=== PATIENT | male | born 1995 | race Caucasian/White ===

== ENCOUNTER 2016-08-04 12:54 | Emergency (ER) | payer OTHER ==
[~2016-08-04] VITALS: Ht 193 cm; Wt 113.4 kg
[2016-08-04 12:58] VITALS: BP 143/79
--- NOTE | 2016-08-04 13:33 | ED GENERAL ADULT ---
See Addendum History of Present Illness General Chief Complaint: General Adult Stated Complaint: STD TESTING Source: patient Exam Limitations: no limitations Vital Signs & Intake/Output Vital Signs & Intake/Output Vital Signs Date Time Temp Pulse Resp B/P Pulse O2 O2 Flow FiO2 Ox Delivery Rate 08/04 1258 96.8 92 20 143/79 97 Room Air Allergies Coded Allergies: No Known Allergies (08/04/16) Triage Note: RECEIVED 21 YO MALE REQUESTING TESTING FOR STD'S. PT REPORTS PREVIOUS SEXUAL PARTNER TESTED POSITIVE FOR A STD. Triage Nurses Notes Reviewed? yes Onset: Abrupt Duration: day(s):, constant Timing: recent history No Modifying Factors: none HPI: 21-year-old male comes into emergency room for gonorrhea/chlamydia exposure. He reports that his girlfriend tested positive for 102. Patient is not exhibiting any symptoms. Patient wants to be tested and treated. Denies any burning with urination or increased frequency. Denies any pain at all or any other symptoms. (ZORA AGUILAR) Reconcile Medications Cetirizine HCl (All Day Allergy) 1 MG/ML SOLUTION 1 TAB PO DAILY ALLERGY ( Reported) (BHAVNA PASCUAL DO) Past History Travel History Traveled to [place] past 21 day No Medical History Any Pertinent Medical History? see below for history Neurological: NONE EENT: allergies Cardiovascular: NONE Respiratory: NONE Gastrointestinal: NONE Hepatic: NONE Renal: NONE Musculoskeletal: NONE Psychiatric: NONE Endocrine: NONE Blood Disorders: NONE Cancer(s): NONE Surgical History Surgical History: non-contributory Psychosocial History What is your primary language [place] Tobacco Use: Current Daily Use Daily Tobacco Use Amount/Type: => 5 Cigarettes daily Family History Hx Contributory? No (ZORA AGUILAR) Review of Systems Review of Systems Constitutional: Reports: no symptoms. EENTM: Reports: no symptoms. Respiratory: Reports: no symptoms. Cardiovascular: Reports: no symptoms. GI: Reports: no symptoms. Genitourinary: Reports: see HPI. Musculoskeletal: Reports: no symptoms. Skin: Reports: no symptoms. Neurological/Psychological: Reports: no symptoms. Hematologic/Endocrine: Reports: no symptoms. Immunologic/Allergic: Reports: no symptoms. All Other Systems: Reviewed and Negative (ZORA AGUILAR) Physical Exam Physical Exam General Appearance: well developed/nourished, no apparent distress, alert Head: atraumatic Eyes: Bilateral: normal appearance, EOMI. Ears, Nose, Throat: normal ENT inspection, hearing grossly normal Neck: normal inspection, full range of motion Respiratory: no respiratory distress Cardiovascular: regular rate/rhythm Gastrointestinal: soft Back: normal inspection Extremities: normal inspection, normal range of motion Neurologic/Psych: awake, alert, oriented x 3, normal gait, normal mood/affect Skin: intact, normal color Core Measures ACS in differential dx? No CVA/TIA Diagnosis: No Severe Sepsis Present: No Septic Shock Present: No (ZORA AGUILAR) Progress Differential Diagnoses I considered the following diagnoses in my evaluation of the patient: Gonorrhea chlamydia, syphilis, herpes, HIV, Plan of Care: Orders Procedure Date/time Status CHLAMYDIA-GC DNA PROBE 08/04 1332 Active Microbiology 08/04 1340 URINE ROUT: GC DNA Probe - RECD 08/04 1340 URINE ROUT: Chlamydia DNA Probe (CHRIS) - RECD Initial ED EKG: none Comments: 08/04/2016 1:53:08 PM I explained to the patient that we do not test for other STDs and he would need to follow-up with his primary care department of public health. Patient treated with ceftriaxone and azithromycin. Patient was told to have no sexual intercourse for the next 2 weeks. Patient reports that his partner is currently being treated. Denies any other associated symptoms. Clinically looks well. Nontoxic-appearing. (ZORA AGUILAR) Departure Departure Disposition: HOME OR SELF CARE Condition: Stable Clinical Impression Primary Impression: Exposure to STD Referrals: GLORIA BOSCH DO (PCP/Family) Additional Instructions: If you want full STD panel follow-up with department of public health or primary care doctor. No sexual intercourse for minimal 2 weeks. Return if any other concerns worsening symptoms. Please go over all results of today's visit with your primary care doctor. Contact your primary care doctor to let them know you were here in the emergency room. There may be nonspecific findings which may not be related to your visit today here in the emergency room but may require further evaluation and chronic monitoring by your primary care doctor. If you had a laceration today the chance of foreign body always remains. You should follow-up with your primary care doctor for recheck in 3-5 days for a wound check. If you had an x-ray done there is a chance that a fracture could have been missed on initial read and you should follow-up with your primary care doctor for repeat x-rays if symptoms persist. If your blood pressure was elevated here in the emergency room please have rechecked by her primary care doctor within the next 48 hours by your primary care doctor. If you were prescribed a narcotic here in the emergency room or any type of controlled substances you're not allowed to drive while taking this medication or operate any type of heavy machinery. Narcotics can make you feel lightheaded dizziness nausea and can cause constipation. You may need to picker machine operator a stool softener. Thank you for choosing [facility] emergency room. Please return to the emergency room immediately if you have any other concerns worsening of symptoms. Departure Forms: Customer Survey General Discharge Information (ZORA AGUILAR) PA/WOODEN BOX MAKER Co-Sign Statement Statement: ED Attending supervision documentation- [] I saw and evaluated the patient. I have also reviewed all the pertinent lab results and diagnostic results. I agree with the findings and the plan of care as documented in the PA's/WOODEN BOX MAKER's documentation. [X] I have reviewed the ED Record and agree with the PA's/WOODEN BOX MAKER's documentation. [] Additions or exceptions (if any) to the PAs/WOODEN BOX MAKER's note and plan are summarized below: [] (BHAVNA PASCUAL DO) Critical Care Note Critical Care Note Critical Care Time: non-applicable (ZORA AGUILAR)
[2016-08-04] MEDS ORDERED: ALL DAY ALL1 MG/1 ML PO (14:05)
== END 2016-08-04 14:05 ==
LOC: ERH 12:54
DX: Z20.2 Contact with and (suspected) exposure to infections with a predominantly sexual mode of transmission (principal)
CPT/HCPCS: 87491; 87591; 96372; J0696

== ENCOUNTER 2017-01-30 09:43 | Emergency (ER) | payer SELFPAY ==
[~2017-01-30] VITALS: Ht 193 cm; Wt 129.7 kg
[~2017-01-30 09:43] MED LIST: ALL DAY ALL1 MG/1 ML PO
[2017-01-30 09:44] VITALS: BP 136/86
--- NOTE | 2017-01-30 10:52 | ED INFLUENZA/URI COMPLAINT ---
History of Present Illness General Chief Complaint: Upper Respiratory Sx/Fever Stated Complaint: URI Source: patient, old records Exam Limitations: no limitations Vital Signs & Intake/Output Vital Signs & Intake/Output Vital Signs Date Time Temp Pulse Resp B/P B/P Pulse O2 O2 Flow FiO2 Mean Ox Delivery Rate 01/30 0944 98.0 102 20 136/86 98 Room Air Allergies Coded Allergies: No Known Allergies (08/04/16) Reconcile Medications Amoxicillin/Potassium Clav (Augmentin 875-125 Tablet) 875 MG-125 MG TABLET 1 TAB PO BID BRONCHITIS Cetirizine HCl (All Day Allergy) 1 MG/ML SOLUTION 1 TAB PO DAILY ALLERGY ( Reported) Codeine Phosphate/Guaifenesi (Guaifen-Codeine 100-10 MG/5 Ml) 10 MG-100 MG/5 ML LIQUID 10 ML PO Q6HR PRN COUGH Triage Note: COMPLAINS OF 3 DAYS COUGH PRODUCTIVE OF YELLOW /GREEN SPUTUM. Triage Nurses Notes Reviewed? yes Onset: Abrupt Duration: day(s): (3), constant Timing: recent history Severity: moderate Severity Numbers: 5 No Modifying Factors: none Associated Symptoms: cough HPI: 21-year-old male with no medical history presents to ER for evaluation complaining of a 3 day history of a productive cough of yellow-green sputum associated generalized bodyaches and subjective fevers chills. No sick contacts. He took Mucinex without improvement he is not taken anything for his fever or systemic. This morning at home be tested was 98.8. He denies shortness of breath no history of asthma no chest pain no nausea vomiting diarrhea. He denies ear pain or sore throat. He reports to positive rhinorrhea congestion. His girlfriend is home sick with similar symptoms. He is an active smoker (PILAR ÁLVAREZ) Past History Travel History Traveled to [place] past 21 day No Medical History Any Pertinent Medical History? see below for history Neurological: NONE EENT: allergies Cardiovascular: NONE Respiratory: NONE Gastrointestinal: NONE Hepatic: NONE Renal: NONE Musculoskeletal: NONE Psychiatric: NONE Endocrine: NONE Blood Disorders: NONE Cancer(s): NONE Surgical History Surgical History: non-contributory Psychosocial History What is your primary language [place] Tobacco Use: Never used ETOH Use: denies use Illicit Drug Use: denies illicit drug use Family History Hx Contributory? No (PILAR ÁLVAREZ) Review of Systems Review of Systems Constitutional: Reports: see HPI. Comments Review of systems: See HPI, All other systems negative. Constitutional, chills fever, no malaise HEENT: No visual changes no sore throat congestion, Cardiovascular: No chest pain , Skin: no rashes, no change in skin Respiratory: No dyspnea cough no sputum no hemoptysis GI: No nausea no vomiting, no diarrhea, no bloating/constipation : No dysuria No hematuria, Muscle skeletal: No joint pain, no joint swelling, no back pain, no neck pain, Neurologic: no headache Psych: No stress Heme/endocrine: No bruising Immunology: No lymphadenopathy (PILAR ÁLVAREZ) Physical Exam Physical Exam General Appearance: well developed/nourished, no apparent distress, alert, awake Ears, Nose, Throat: normal ENT inspection, moist mucous membrane, hearing grossly normal Comments: Well-developed well-nourished patient in no apparent distress. Head/Face: Atraumatic, no maxillary/frontal sinus tenderness, no facial swelling Eyes: PERRL, EOMI, no conjunctival injection. No nystagmus Ear:External auditory canal and Tympanic membranes clear, no erythema, no FB. Nose: atraumatic.Normal inspection: No bleeding, no septal hematoma Throat: Moist mucous membranes.Pharynx normal. No pharyngeal erythema/exudate seen. No stridor/drooling or assymetry. No swelling or edema. Neck: Supple, no lymphadenopathy, FROM Back: FROM Cardiovascular: Regular rate and rhythms no murmurs rubs or gallops, Respiratory: No respiratory distress. Patient speaking in full complete sentences. Breath sounds clear to auscultation bilaterally: NO W/R/R Extremities: full range of motion Neuro: awake, alert, and oriented to person, place and time. There were no obvious focal neurologic abnormalities. Skin: Warm & dry;No appreciable rash on exposed skin Psych: Mood affect normal, normal memory normal judgment. Core Measures Severe Sepsis Present: No Septic Shock Present: No (PILAR ÁLVAREZ) Progress Differential Diagnosis: influenza, otitis, pneumonia, pharyngitis, sinusitis, BRONCHITIS Plan of Care: Patient speaking in full complete sentences lungs are clear auscultation. I discussed with the patient at length all of their results. I had an extensive conversation regarding need for close follow up with their primary care physician this week as well as return precautions. I answered all of their questions, they feel comfortable with the plan and follow-up care. I discussed with the patient/family the medications that they will receive. I gave them signs and symptoms that could indicate an adverse reaction. I have advised them to limit their activities until they can see how they respond to the medication. Initial ED EKG: none (PILAR ÁLVAREZ) Departure Departure Time of Disposition: 1058 Disposition: HOME OR SELF CARE Condition: Stable Clinical Impression Primary Impression: Bronchitis Referrals: GLORIA BOSCH DO (PCP/Family) Additional Instructions: , Robitussin codeine for cough use caution as as a narcotic. No driving or drinking alcohol aching this may make you drowsy. Follow-up with her primary care physician. Tylenol Motrin every 4-6 hours. Departure Forms: Customer Survey General Discharge Information Prescriptions: Current Visit Scripts Amoxicillin/Potassium Clav (Augmentin 875-125 Tablet) 1 TAB PO BID #14 TAB Codeine Phosphate/Guaifenesi (Guaifen-Codeine 100-10 MG/5 Ml) 10 ML PO Q6HR PRN COUGH #150 ML (PILAR ÁLVAREZ) PA/PHYSICAL MEDICINE PHYSICIAN Co-Sign Statement Statement: ED Attending supervision documentation- I saw and evaluated the patient. I have also reviewed all the pertinent lab results and diagnostic results. I agree with the findings and the plan of care as documented in the PA's/PHYSICAL MEDICINE PHYSICIAN's documentation. x I have reviewed the ED Record and agree with the PA's/PHYSICAL MEDICINE PHYSICIAN's documentation. [] Additions or exceptions (if any) to the PAs/PHYSICAL MEDICINE PHYSICIAN's note and plan are summarized below: [] (DARRICK ROBLES,PILLO)
[2017-01-30] MEDS ORDERED: GUAIFEN-CODEIN118 M1 PO (10:59)
[2017-01-30] MEDS ORDERED: AUGMENTIN 875-1 EACH PO (10:59)
== END 2017-01-30 11:10 ==
LOC: ERH 09:43
DX: J40 Bronchitis, not specified as acute or chronic (principal); F17.210 Nicotine dependence, cigarettes, uncomplicated